=== PATIENT | male | born 1945 | race Caucasian/White ===

== ENCOUNTER → 2018-08-28 | Outpatient (CLI) | payer MEDICARE ==
[2018-08-28 15:16] LABS: LDL Cholesterol,Calculated 89.2 mg/dL (0.0-131.0); VLDL Calculation 20.8 mg/dL (5.00-40.00)
== END | disposition home or self-care (01) ==
LOC: LABWHC1 08:53
PROVIDERS: ATTEND Internal Medicine Cardiovascular Disease
DX: E78.2 Mixed hyperlipidemia (principal)
CPT/HCPCS: 36415; 80061; 84450; 84460

== ENCOUNTER 2018-10-09 11:01 | Day surgery (SDC) | payer MEDICARE ==
[2018-10-07 10:40] VITALS: BMI 22.8
[~2018-10-09 11:01] MED LIST: HYDROmorphone 0.5 MG/0.5 ML SYRINGE IVP PRN; LACTATED RINGERS 1,000 ML IV SCH; MIDAZOLAM 2 MG/2 ML VIAL IV PRN; ONDANSETRON 4 MG/2 ML VIAL IVP ONE; SCOPOLAMINE 1.5MG/72HR PATCH TRANSDERM ONE
[2018-10-09 12:25] VITALS: RESP 16; TEMP 97.6
[2018-10-09] MEDS ORDERED: LIDOCAINE 1% 20 ML VIAL (10MG/ML) FOR IV START INTRADERMA ONE (12:32)
[2018-10-09] MEDS ORDERED: LIDOCAINE 1% INJ 10MG/ML (20 ML MDV) ONE (14:07)
[2018-10-09] MEDS ORDERED: PROPOFOL 10 MG/ML 20 ML VIAL IV ONE (14:07)
--- NOTE | 2018-10-09 15:22 | P.PCN ---
Date of Procedure: 10/09/18 Description of Procedure: BRIEF HISTORY: Patient is a 73-year-old pleasant male scheduled for an elective colonoscopy as a part of evaluation of a positive cologaurd in the outpatient setting. Patient has a history of colon polyps in the past as well as her particular disease. He reports that his been approximately 5 years since his last colonoscopy. He denies any abdominal pain, constipation, diarrhea, blood in stool or melena. He denies any family history of colon cancer. PROCEDURE PERFORMED: Colonoscopy with polypectomy. PREOPERATIVE DIAGNOSIS: Positive cologaurd, high risk colon cancer surveillance, personal history of polyps. ESTIMATED BLOOD LOSS: Minimal. IV sedation per Anesthesia. PROCEDURE: After informed consent was obtained, the patient, was brought into the endoscopy unit. IV sedation was administered by Anesthesia under continuous monitoring. D igital rectal examination was normal. Initially the Olympus CF-190 flexible video colonoscope was then inserted in the rectum, gradually advanced into the cecum without any difficulty. Careful examination was performed as the scope was gradually being withdrawn. Ileocecal valve and the appendiceal orifice were visualized and appeared normal. A sessile 4 mm polyp on the ileocecal valve was noted and removed with cold forcep polypectomy. A thickened fold was noted in the transverse colon with multiple biopsies and complete removal with cold forcep. A sessile 3 mm sigmoid colon polyp was removed with cold forcep polypectomy. Three 2 mm rectal polyps were removed with cold forcep polypectomy. Diverticulosis was noted predominantly in the sigmoid colon. Prep was excellent. Mucosa of the cecum, ascending colon, transverse colon, descending colon, sigmoid colon, and rectum appeared normal, with internal hemorrhoids noted. Retroflexion was performed in the rectum and no lesions were seen. The patient tolerated the procedure well. IMPRESSION: 1. Cold forcep polypectomy of polyps in the sigmoid colon, rectum and on the IC valve. 2. Thickened transverse colon fold biopsied. 3. Moderate diverticulosis. 4. Mild internal hemorrhoids. RECOMMENDATIONS: Findings of this examination were discussed with the patient and his girlfriend. Okay to resume diet. Anticipate repeat colonoscopy in 5 years. Await pathology from biopsies.
[2018-10-09 15:44] VITALS: BP 133/72; PULSE 58
== END 2018-10-09 16:13 | disposition home or self-care (01) ==
LOC: ORWHC2ENDO 11:01
PROVIDERS: ATTEND Internal Medicine
DX: Z86.010 Personal history of colon polyps (principal); D12.3 Benign neoplasm of transverse colon; D12.5 Benign neoplasm of sigmoid colon; K57.90 Diverticulosis of intestine, part unspecified, without perforation or abscess without bleeding; K64.8 Other hemorrhoids; Z88.5 Allergy status to narcotic agent; Z79.899 Other long term (current) drug therapy; Z79.01 Long term (current) use of anticoagulants; I48.91 Unspecified atrial fibrillation; K21.9 Gastro-esophageal reflux disease without esophagitis; Z86.73 Personal history of transient ischemic attack (TIA), and cerebral infarction without residual deficits; E78.5 Hyperlipidemia, unspecified; I10 Essential (primary) hypertension; I25.2 Old myocardial infarction; J44.9 Chronic obstructive pulmonary disease, unspecified; F17.290 Nicotine dependence, other tobacco product, uncomplicated
CPT/HCPCS: 45380; J2001; J2704; 88305

== ENCOUNTER → 2020-08-17 | Outpatient (CLI) | payer MEDICARE ==
--- NOTE | 2020-08-17 18:31 | MR ---
EXAMINATION TYPE: MR shoulder RT wo con DATE OF EXAM: 08/17/2020 COMPARISON: Outside radiograph 08/11/2020 HISTORY: 75-year-old male M25.511, Pain in right shoulder TECHNIQUE: Multiplanar, multisequence imaging of the right shoulder is performed without contrast. FINDINGS: The long head biceps tendon becomes heterogeneous at the junction of the intracapsular and extracapsu lar portions, refer to sagittal T2 FS image 22. The extracapsular portion remains appropriate AC join t along the bicipital groove with moderate tenosynovial fluid. Heterogeneous signal of the subscapularis tendon with areas of partial-thickness tearing throughout. The majority of the tendon appears intact. Moderate degenerative joint space narrowing and marginal spurring and capsular hypertrophy at the acr omioclavicular joint. Anterior spurring contacts the underlying myotendinous junction of the supraspi natus. Heterogeneous signal both supraspinatus and infraspinatus tendons. The supraspinatus tendon demonstra malissa bursal sided fraying. Intrasubstance changes present throughout. There is an intrasubstance tear at the footprint of the far anterior supraspinatus tendon fibers. No high-grade partial or full-thickness tear is identified. No atrophy of the rotator cuff musculature. Mild glenohumeral joint effusion. Mild cartilage thinning along the glenoid humeral joint. There is some edematous change along the axillary recess and soft tissue replacement in the rotator c uff interval. Portions of the coracohumeral ligament appears thickened up to 5 mm. There is abnormal signal within the superior labrum extending to the upper third aspect of the filer finish ior labrum. Patchy red marrow is present and can be seen in the setting of anemia, smoking, and chronic disease. No Hill-Sachs deformity or os acromiale. No suspicious bone marrow replacement. IMPRESSION: 1. Diffuse rotator cuff tendinosis. Scattered areas of bursal sided fraying and intrasubstance change is present throughout. Additionally, areas of partial thickness tearing involves the subscapularis t endon though the majority remains intact. No high-grade partial or full-thickness rotator cuff tear. 2. Some soft tissue replacement in the rotator cuff interval, mild edematous thickening along the axi llary recess, and thickening of the coracohumeral ligament. These are nonspecific findings but the co nstellation may be seen with adhesive capsulitis. Clinically correlate. 3. Either focal tendinosis versus partial tear at the junction of the intracapsular and extracapsular portions of the long head biceps tendon. Associated tenosynovitis. 4. Findings suggest superior labral tear. 5. Mild glenohumeral joint OA and moderate AC joint OA.
== END | disposition home or self-care (01) ==
LOC: RADMRIMAIN 10:59
PROVIDERS: ATTEND Orthopaedic Surgery
DX: S46.811A Strain of other muscles, fascia and tendons at shoulder and upper arm level, right arm, initial encounter (principal); M75.21 Bicipital tendinitis, right shoulder; M19.011 Primary osteoarthritis, right shoulder

== ENCOUNTER → 2021-08-17 | Outpatient (CLI) | payer MEDICARE ==
[2021-08-17 23:05] LABS: African American GFR (CKD) 85.6 (60.0-200.0); Anion Gap 12.6 mmol/L (10.00-18.00); Blood Urea Nitrogen 11.9 mg/dL (9.0-27.0); Carbon Dioxide 23.4 mmol/L (20.0-27.5); Non-African American GFR(CKD) 73.8 (60.0-200.0); Potassium 4.7 mmol/L (3.5-5.5)
== END | disposition home or self-care (01) ==
LOC: LABWHC1 16:03
PROVIDERS: ATTEND Internal Medicine Cardiovascular Disease
DX: I10 Essential (primary) hypertension (principal); I20.0 Unstable angina; E78.2 Mixed hyperlipidemia
CPT/HCPCS: 36415; 80051; 82565; 84520

== ENCOUNTER 2021-08-21 06:19 | Day surgery (SDC) | payer MEDICARE ==
[2021-08-18 11:40] VITALS: BMI 23.6
[~2021-08-21 06:19] MED LIST changes: +ALPRAZolam 0.25 MG TAB PO PRN; +ALPRAZolam 0.5 MG TAB PO PRN; +ASPIRIN 325 MG TAB PO STA; +ATORVASTATIN 80 MG TAB PO STA; +HEPARIN SODIUM,PORCINE 10,000 UNIT in SODIUM CHLORIDE 0.9% 1,000 ML IRRIGATION PRN; +HEPARIN SODIUM,PORCINE 2,500 UNIT in SODIUM CHLORIDE 0.9% 250 ML IRRIGATION PRN; -HYDROmorphone 0.5 MG/0.5 ML SYRINGE IVP PRN; -LACTATED RINGERS 1,000 ML IV SCH; -MIDAZOLAM 2 MG/2 ML VIAL IV PRN; +NITROGLYCERIN SL TABS 0.4 MG TAB SUBLINGUAL PRN; -ONDANSETRON 4 MG/2 ML VIAL IVP ONE; -SCOPOLAMINE 1.5MG/72HR PATCH TRANSDERM ONE
[2021-08-21] MEDS ORDERED: SODIUM CHLORIDE 0.9% 1,000 ML in EMPTY BAG 1 BAG IV SCH (06:30)
[2021-08-21 06:47] VITALS: RESP 18; TEMP 97
[2021-08-21] MEDS ORDERED: HEPARIN SODIUM 1,000 UN/ML (10ML VL) ONE (07:05)
[2021-08-21] MEDS ORDERED: LIDOCAINE 1% INJ 10MG/ML (20 ML MDV) ONE (07:05)
[2021-08-21] MEDS ORDERED: fentaNYL (PF) 50 MCG/ML 2 ML AMP ONE (07:06)
[2021-08-21 07:26] LABS: Basophils # (A) 0.1 k/uL (0-0.2); Basophils % (A) 1 %; Eosinophils # (A) 0.2 k/uL (0-0.7); Eosinophils % (A) 3 %; HCT 50.1 % (39.0-53.0); HGB 16.8 gm/dL (13.0-17.5); Lymphocytes # (A) 2.1 k/uL (1.0-4.8); Lymphocytes % (A) 26 %; MCH 31.3 pg (25.0-35.0); MCHC 33.5 g/dL (31.0-37.0); MCV 93.5 fL (80.0-100.0); Mean Platelet Volume 7.3; Monocytes # (A) 0.5 k/uL (0-1.0); Monocytes % (A) 7 %; Neutrophils # (A) 5.1 k/uL (1.3-7.7); Neutrophils % (A) 63 %; Platelet Count 249 k/uL (150-450); RBC 5.36 m/uL (4.30-5.90); RDW 12.9 % (11.5-15.5); WBC 8.1 k/uL (3.8-10.6)
[2021-08-21] MEDS ORDERED: MIDAZOLAM 2 MG/2 ML VIAL IV ONE (07:36)
[2021-08-21] MEDS ORDERED: fentaNYL (PF) 50 MCG/ML 2 ML AMP IV ONE (07:36)
[2021-08-21] MEDS ORDERED: LIDOCAINE 1% INJ 10MG/ML (20 ML MDV) SQ ONE (07:37)
[2021-08-21] MEDS ORDERED: VERAPAMIL SYRINGE (5 MG/10 ML) INTRAARTER ONE (07:41)
[2021-08-21] MEDS ORDERED: HEPARIN SODIUM 1,000 UN/ML (10ML VL) IV ONE (07:44)
[2021-08-21] MEDS ORDERED: IOPAMIDOL-370 125ML BTL INJ ONE (07:51)
[2021-08-21 10:11] VITALS: PULSE 59
[2021-08-21 11:38] VITALS: BP 118/67
--- NOTE | 2021-08-21 11:43 | CC ---
CARDIAC CATHETERIZATION REPORT INDICATION: Unstable angina. PROCEDURE NOTE: After obtaining informed consent, left heart catheterization and coronary angiogram were performed via the right radial artery using standard Shara catheters. Patient tolerated the procedure well without any obvious immediate complications. Patient received moderate conscious sedation. Total sedation time was 16 minutes. Right radial artery access was obtained using a micropuncture needle. Catheter and wire were passed into the ascending aorta under fluoroscopic guidance. Catheters were exchanged in the ascending aorta. The patient received 5 mg of verapamil and 5000 units of heparin as per protocol to prevent vasospasm and as an anticoagulant FINDINGS: HEMODYNAMICS: Left ventricular end-diastolic pressure is 8 to 12 mm. There is no significant gradient across the aortic valve. LEFT VENTRICULOGRAM: Left ventriculogram was not performed. ANGIOGRAPHIC DATA: Left main coronary artery. Left main coronary artery is a normal-sized vessel and is free of stenosis. It divides into left anterior descending coronary artery and circumflex coronary artery. LAD and its branches are free of significant stenosis. Circumflex coronary artery, which is a dominant vessel, shows mild nonobstructive disease distally. Right coronary artery is a nondominant vessel and shows a moderate atherosclerotic plaque in the mid portion. CONCLUSION: Mild nonobstructive coronary artery disease involving right coronary artery and circumflex coronary artery. I believe the patient's chest discomfort is noncardiac in origin, and his management is going to be in the form of risk factor modification and optimal medical therapy. MMODL / IJN: [id number] /
== END 2021-08-21 12:00 | disposition home or self-care (01) ==
LOC: CATHCVL 06:19
PROVIDERS: ATTEND Internal Medicine Cardiovascular Disease
DX: I20.0 Unstable angina (principal)
CPT/HCPCS: 93458; 85025; J2250; J2001; J3010; J1644; Q9967

== ENCOUNTER → 2021-09-18 | Outpatient (CLI) | payer MEDICARE ==
--- NOTE | 2021-09-18 21:49 | CT ---
EXAMINATION TYPE: CT angio chest DATE OF EXAM: 09/18/2021 COMPARISON: No previous CT scan is available for comparison HISTORY: chest pain CT DLP: 239.2 mGy.cm. Automated Exposure Control for Dose Reduction was Utilized. TECHNIQUE AND CONTRAST: CTA scan of the thorax is performed with IV Contrast, patient injected with 72cc mL of Isovue 370, pu lmonary angiogram protocol. MIP Images are created on an independent workstation and reviewed. FINDINGS: No definite filling defect within the pulmonary trunk, main pulmonary arteries, lobar and segmental b ranches to suggest pulmonary embolism. Subsegmental branches are suboptimally assessed. The pulmonary trunk measures 2.7 cm. No gross cardiomegaly. Scattered arterial and coronary atherosclerotic calcif ications. No pericardial effusion. Bilateral lower lobe posterior dependent densities and peripheral pulmonary reticulations. Severe ray trilobular emphysematous changes mainly involving the upper lobes. 5 mm middle lobe pleural-based nod ule with more inferior mixed density 4mm nodule. Right lower lobe lateral pleural-based nodule measur ing 5 mm with a 4 mm right upper lobe anterior nodule. 5 mm pleural-based nodule is seen in the left lung base. Patent trachea and main bronchi. No pleural effusion. No pathologically enlarged lymph nodes in the c hest. No gross upper abdominal abnormality. No aggressive bone lesion. IMPRESSION: No major or central pulmonary embolism. Pulmonary emphysematous changes as described above. Scattered bilateral pulmonary nodules measuring up to 5 mm as described above. Recommend precautionar y follow-up CT scan in 3-6 months for reassessment. Other incidental findings as described above.
== END | disposition home or self-care (01) ==
LOC: RADCTMAIN 17:42
PROVIDERS: ATTEND Family Medicine
DX: J43.2 Centrilobular emphysema (principal); R91.8 Other nonspecific abnormal finding of lung field
CPT/HCPCS: 82565; 84520; 71275; 36415; Q9967

== ENCOUNTER → 2022-04-13 | Outpatient (CLI) | payer MEDICARE ==
--- NOTE | 2022-04-13 08:49 | CTL ---
EXAMINATION TYPE: CT Low Dose Lung DATE OF EXAM ORDERED: 04/13/2022 HISTORY: 77-year-old male Z87.891. Lung cancer screening, smoker with 35 pack-year history. CT DLP: 67.[address] CTDI: 1.80 mGy Automated exposure control for dose reduction was used. SCREENING VISIT: Baseline COMPARISON: Prior CT chest 09/18/2021. TECHNIQUE: Low dose computed tomography scan was performed through the chest with coronal and sagitta l reconstructions.. CT DIAGNOSTIC QUALITY: Satisfactory FINDINGS: Heart normal size without pericardial effusion. LAD and circumflex coronary calcifications are presen t. Scattered mild atherosclerotic calcifications within thoracic aorta. Mild ectasia ascending aorta 3.7 cm in upper descending thoracic aorta at 3.2 cm. Bovine configuration to the aortic arch. Mild aneur ysm lower descending thoracic aorta to 3.0 cm. No thoracic lymphadenopathy by CT size criteria. Mild biapical pleural-parenchymal scarring. Moderate centrilobular emphysema and mild diffuse bronchi al wall thickening. 3 mm nodularity peripheral right upper lobe, axial image 50 is unchanged. 4 mm subpleural pulmonary nodule along the superiormost aspect of the left major fissure, axial image 102 is unchanged. 4 mm lateral right lower lung pulmonary nodule, axial image 208 is unchanged. 5 mm subpleural pulmonary nodule right middle lobe, axial image 201 is unchanged. 4 mm lateral right lower lung pulmonary nodule along the major fissure, axial image 219 is unchanged. 3 mm subpleural pulmonary nodule basilar right middle lobe, axial image 239 is unchanged. 6 mm subpleural pulmonary nodule posterior right base, axial image 226 not clearly seen previously. 5 mm anterior right midlung pulmonary nodule, axial image 153 may be minimally increased from 4 mm on 09/18/2021, 7 months ago. Mild bibasilar bronchiolectasis and scattered strandy scarring. Subtle groundglass changes are presen t and could reflect additional areas of atelectasis. Correlate for possible interstitial pneumonitis that is in a slightly or DIP. Tiny hiatal hernia. Bones: Mild degenerative disc disease mid to lower thoracic spine. IMPRESSION: 1. Scattered bilateral pulmonary nodules are largely stable from 7 months ago. A 6 mm pulmonary nodul e at the posterior right base was not clearly seen previously. It should be reassessed at short inter sridhar follow-up in 6 months. A 5 mm right mid lung pulmonary nodule may also be minimally increased in size. This can also be reassessed. 2. COPD with moderate emphysema. Some scarring is present at the lung bases along with some groundgla ss change. Correlate for the possibility of an underlying interstitial pneumonitis such as NSIP or DI P. CT LUNG RAD AND CT CHEST RECOMMENDATION: Lung-Rad 3 Probably Benign: 6 month follow-up LDCT. S Modifier (other clinically significant findings): None
== END | disposition home or self-care (01) ==
LOC: RADCTMAIN 07:33
PROVIDERS: ATTEND Family Medicine
DX: Z12.2 Encounter for screening for malignant neoplasm of respiratory organs (principal); J43.9 Emphysema, unspecified; R91.8 Other nonspecific abnormal finding of lung field; Z87.891 Personal history of nicotine dependence
CPT/HCPCS: 71271

== ENCOUNTER → 2022-05-11 | Outpatient (CLI) | payer MEDICARE ==
--- NOTE | 2022-05-11 10:58 | FL ---
EXAMINATION TYPE: FL barium swallow DATE OF EXAM: 05/11/2022 10:36 AM COMPARISON: CT chest 04/13/2022. CLINICAL INDICATION:Male, 77 years old with history of K22.4 DYSKINESIA OF ESOPHAGUS; TECHNIQUE: The procedure was explained and patient history elicited. All patient questions were ans wered prior to start of procedure. Multiple spot fluoroscopic images of the esophagus were obtained a fter the oral ingestion of effervescent crystals and liquid barium as the contrast agent. A executive director of nursing ra diograph of the chest was obtained and reviewed. Fluoroscopic time: 18 seconds Fluoroscopic images: Radiographs taken: 184 FINDINGS: The executive director of nursing radiograph of the chest demonstrates no evidence of focal consolidation, pneumoth orax or pleural effusion. The cardiomediastinal silhouette is unremarkable. No acute osseous patholog y. The esophagus demonstrates normal primary and secondary peristalsis. The esophageal mucosa is smooth without evidence of focal stricture, ulceration, or abnormal outpouching. No gastroesophageal reflu x disease was identified. Tertiary contractions are present. Small hiatal hernia was noted while lyin g prone. IMPRESSION: 1. Esophageal dysmotility worse while prone. 2. Small sliding hiatal hernia.
== END | disposition home or self-care (01) ==
LOC: RADUSWWP 09:42
PROVIDERS: ATTEND Family Medicine
DX: K22.4 Dyskinesia of esophagus (principal); K44.9 Diaphragmatic hernia without obstruction or gangrene
CPT/HCPCS: 74220

== ENCOUNTER → 2022-10-15 | Outpatient (CLI) | payer MEDICARE ==
--- NOTE | 2022-10-15 13:13 | CTL ---
EXAMINATION TYPE: CT Low Dose Lung DATE OF EXAM: 10/15/2022 11:48 AM CLINICAL INDICATION:Male, 77 years old with history of Z87.891 PERSONAL HISTORY OF NICOTINE DEPENDENC E; CURRENT SMOKER 1PACK A DAY/50 YEARS , history of tobacco use. COMPARISON: 04/13/2022 TECHNIQUE: Multiple axial non-contrast scans were obtained from approximately the lung apices through the upper abdomen. Coronal and sagittal reformatted images were obtained. Low dose technique was uti lized. CT DLP: 70.5 mGycm, Automated exposure control for dose reduction was used. CT Contrast: Contrast used: None Oral contrast used: None FINDINGS: ======== Lack of intravenous contrast and low dose technique limits the evaluation of the vascular and soft ti ssue structures. LUNGS: No evidence of pulmonary fibrosis. No evidence of focal consolidation, pneumothorax or pleural effusion. Emphysema changes are seen throughout the lungs. Nodules: * RUL: Stable right upper lobe nodular density series 3 image 52. 4 mm pulmonary nodule image 15 9 stable. * RML: Stable 5 mm nodule series 3 image 202. Stable groundglass opacity measuring 5 mm image 21 3. * RLL: Stable posterior right lower lobe 6 mm pulmonary nodule image 226 * FERMIN: Left major fissure intrafissural lymph node image 107. * LLL: 4 mm image 273 and 6 mm image 303. AIRWAY: Patent and unremarkable. HEART: Size within normal limits. Coronary artery calcifications are present. MEDIASTINUM: No gross evidence of adenopathy. VASCULATURE: No aortic aneurysm. Atherosclerosis of the arterial vasculature. MUSCULOSKELETAL: No acute osseous abnormalities SOFT TISSUES/LYMPH NODES: Unremarkable. LOWER NECK: No significant findings. UPPER ABDOMEN: No significant findings. IMPRESSION: 1. Stable pulmonary nodules. 2. Moderate emphysema changes. CT LUNG RAD AND CT CHEST RECOMMENDATION: Lung-Rad 2 Benign Appearance or Behavior: Continue annual sc reening with LDCT in 12 months. S Modifier (other clinically significant findings): None Recommend smoking cessation (if current smoker), or continuation of smoking cessation (if prior smoke r). Annual screening for lung cancer with low-dose computed tomography is recommended in adults ages 55 to 77 years who have a 30 pack-year smoking history and currently smoke or have quit within the pa st 15 years. Screening should be discontinued once a person has not smoked for 15 years or develops a health problem that substantially limits life expectancy or the ability or willingness to have curat claudia lung surgery. Lung rads 2021 [email or web address]
== END | disposition home or self-care (01) ==
LOC: RADCTMAIN 10:43
PROVIDERS: ATTEND Family Medicine
DX: Z12.2 Encounter for screening for malignant neoplasm of respiratory organs (principal); J43.9 Emphysema, unspecified; R91.8 Other nonspecific abnormal finding of lung field; F17.210 Nicotine dependence, cigarettes, uncomplicated
CPT/HCPCS: 71271

== ENCOUNTER → 2022-11-07 | Outpatient (CLI) | payer MEDICARE ==
--- NOTE | 2022-11-07 08:09 | US ---
EXAMINATION TYPE: US abdomen comp/pelvis limited DATE OF EXAM: 11/07/2022 COMPARISON: 08/28/2014. CLINICAL INDICATION: Male, 77 years old with history of R10.30 LOWER ABDOMINAL PAIN, UNSPECIFIED; Low er abdomen pain. Chest pain. EXAM MEASUREMENTS: Liver Length: 16.8 cm Gallbladder Wall: 0.2 cm CBD: 0.4 cm Spleen: 11.6 cm Right Kidney: 11.2 x 4.8 x 3.8 cm Left Kidney: 10.1 x 5.1 x 5.6 cm Pancreas: wnl Liver: wnl Gallbladder: Possible gallbladder adenomyomatosis CBD: wnl Spleen: wnl Right Kidney: anechoic lesion = 1.8 x 1.6 x 1.5 cm Left Kidney: anechoic lesion = 1.1 x 1.0 x 0.9 cm Upper IVC: wnl Abd Aorta: No AAA visualized at time of scan Bladder: distended, anechoic Bilateral Jets Seen The prostate gland is enlarged measuring up to 4.6 x 4.5 x 4.2 cm. Median lobe hypertrophy changes. IMPRESSION: 1. No evidence for acute process. 2. Bilateral simple appearing renal cysts.
== END | disposition home or self-care (01) ==
LOC: RADUSWWP 06:45
PROVIDERS: ATTEND Internal Medicine Gastroenterology
DX: N28.1 Cyst of kidney, acquired (principal)
CPT/HCPCS: 76700; 76857

== ENCOUNTER 2022-11-09 10:34 | Day surgery (SDC) | payer MEDICARE ==
[2022-11-07 10:37] VITALS: BMI 22.8
[~2022-11-09 10:34] MED LIST changes: -ALPRAZolam 0.25 MG TAB PO PRN; -ALPRAZolam 0.5 MG TAB PO PRN; -ASPIRIN 325 MG TAB PO STA; -ATORVASTATIN 80 MG TAB PO STA; -HEPARIN SODIUM,PORCINE 10,000 UNIT in SODIUM CHLORIDE 0.9% 1,000 ML IRRIGATION PRN; -HEPARIN SODIUM,PORCINE 2,500 UNIT in SODIUM CHLORIDE 0.9% 250 ML IRRIGATION PRN; +LACTATED RINGERS 1,000 ML IV SCH; -NITROGLYCERIN SL TABS 0.4 MG TAB SUBLINGUAL PRN
[2022-11-09 12:54] VITALS: RESP 16; TEMP 97
[2022-11-09] MEDS ORDERED: LIDOCAINE 2% INJ 20 MG/ML (2 ML VIAL) ONE (13:49)
[2022-11-09] MEDS ORDERED: PROPOFOL 10 MG/ML 20 ML VIAL IV ONE (13:49)
--- NOTE | 2022-11-09 14:03 | P.PCN ---
Date of Procedure: 11/09/22 Procedure(s) Performed: BRIEF HISTORY: Patient is a 77-year-old, pleasant, white male scheduled for an upper endoscopy as a part of evaluation of atypical chest pain for the last several months duration. He does have long-standing history of GERD and takes Pepcid 20 mg twice daily with good relief.. PROCEDURE PERFORMED: Esophagogastroduodenoscopy with biopsy. PREOPERATIVE DIAGNOSIS: Atypical chest pain. IV sedation per anesthesia. PROCEDURE: After informed consent was obtained, the patient was brought into the endoscopy unit. IV sedation was administered by Anesthesia under continuous monitoring. Initially the Olympus GIF-140 video endoscope was inserted into the mouth. Esophagus intubated without any difficulty. It was gradually advanced into the stomach and duodenum and carefully examined. The bulb and the second part of the duodenum appeared normal. The scope at this time was withdrawn to the stomach, adequately insufflated with air, and upon careful examination, mucosa of the antrum, had mild gastritis and biopsies were done from this area. Mucosa of the body, cardia and the fundus appeared normal. The scope was then withdrawn into the esophagus. Small hiatal hernia noted. The GE junction was located at 39 cm from the incisors. The esophagus appeared normal. There were no erosions or ulcerations seen and biopsies were done from the distal esophagus and the patient tolerated the procedure well. IMPRESSION: 1. Small hiatal hernia but no evidence of esophagitis or Kaye's esophagus. 2. Mild antral gastric. RECOMMENDATIONS: The findings of this examination were discussed with the patient as well as his family. He was advised to follow with the biopsy results. In the meantime I recommended that he try Prilosec 20 mg twice daily half hour before breakfast and dinnertime and follow antireflux measures for 3 months..
[2022-11-09 14:23] VITALS: BP 121/69; PULSE 69
== END 2022-11-09 14:53 | disposition home or self-care (01) ==
LOC: ORWHC2ENDO 10:34
PROVIDERS: ATTEND Internal Medicine Gastroenterology
DX: K29.50 Unspecified chronic gastritis without bleeding (principal); K21.00 Gastro-esophageal reflux disease with esophagitis, without bleeding; K44.9 Diaphragmatic hernia without obstruction or gangrene; I10 Essential (primary) hypertension; E78.5 Hyperlipidemia, unspecified; J44.9 Chronic obstructive pulmonary disease, unspecified; F17.200 Nicotine dependence, unspecified, uncomplicated; Z86.73 Personal history of transient ischemic attack (TIA), and cerebral infarction without residual deficits; Z98.890 Other specified postprocedural states; Z88.5 Allergy status to narcotic agent; Z79.899 Other long term (current) drug therapy
CPT/HCPCS: 88305; 43239; J2704; J2001

== ENCOUNTER → 2023-09-20 | Outpatient (CLI) | payer MEDICARE ==
[2023-09-20 16:11] LABS: ALT 10 U/L (10-49); AST 12 U/L (14-35); LDL Cholesterol,Calculated 133.9 mg/dL (0.0-131.0)
== END | disposition home or self-care (01) ==
LOC: LABWHC1 07:57
PROVIDERS: ATTEND Internal Medicine Cardiovascular Disease
DX: E78.2 Mixed hyperlipidemia (principal)
CPT/HCPCS: 36415; 80061; 84450; 84460

== ENCOUNTER → 2023-10-25 | Outpatient (CLI) | payer MEDICARE ==
--- NOTE | 2023-10-26 09:37 | CTL ---
EXAMINATION TYPE: CT Low Dose Lung DATE OF EXAM ORDERED: 10/25/2023 HISTORY: . Lung cancer screening CT DLP: 71.[address] CTDI: 1.8 mGy Automated exposure control for dose reduction was used. SCREENING VISIT: Subsequent COMPARISON: 10/15/2022 TECHNIQUE: Low dose computed tomography scan was performed through the chest at 1 mm thick sections a nd reconstructed images in the coronal plane at [address] DIAGNOSTIC QUALITY: Satisfactory FINDINGS: LUNG NODULES: None. 1. There is a 0.6 cm nodule within the anterior right mid lung. Series 4 image 159. Previous measurem ent 0.4 cm. 2. There is a pleural-based 0.7 cm thickening. Series 4 image 204. This is slightly enlarged from 0.6 cm. There is new 0.9 cm linear area right middle lobe periphery. Series 4 image 210. This has change d configuration from prior exam. 4. There is a 0.6 cm peripheral posterior nodule. Series 4 image 215. This appears to have been prese nt previously. 5. There is a thickening within the major fissure in the posterior left apex measuring 0.4 cm. Series 4 image 103 LUNGS: COPD: Severity: Moderate Fibrosis: Severity: None Lymph nodes: None Other findings: None RIGHT PLEURAL SPACE: Effusion: None Calcification: None Thickening: None Pneumothorax: None LEFT PLEURAL SPACE: Effusion: None Calcification: None Thickening: None Pneumothorax: None HEART: Heart Size: Mild Coronary calcification: Mild Pericardial effusion: None OTHER FINDINGS: Upper abdomen: Normal Bony thorax: Normal Supraclavicular region: Normal Other: Ascending thoracic aorta at the level the main pulmonary artery measures 3.8 cm. The main pul monary artery at the bifurcation measures 2. cm. IMPRESSION: 1. Minimally Enlarging nodules in prior examination. Additional evaluation with PET/CT is recommended . 2. COPD FOLLOW UP CT CHEST RECOMMENDATION: PET/CT CT LUNG RAD: Lung-Rad 4A Suspicious
== END | disposition home or self-care (01) ==
LOC: RADCTMAIN 17:38
PROVIDERS: ATTEND Family Medicine
DX: Z12.2 Encounter for screening for malignant neoplasm of respiratory organs (principal); J44.9 Chronic obstructive pulmonary disease, unspecified; F17.210 Nicotine dependence, cigarettes, uncomplicated
CPT/HCPCS: 71271

== ENCOUNTER → 2023-12-05 | Outpatient (CLI) | payer MEDICARE ==
--- NOTE | 2023-12-08 10:30 | PE ---
EXAMINATION TYPE: PET CT fusion skull to thigh DATE OF EXAM: 12/05/2023 CLINICAL INDICATION:Male, 78 years old with history of R91.8 ABNORMAL FINDING LUNG FIELD; TECHNIQUE: Following the intravenous administration of 13.76 mCi of F-18 FDG, whole body images are performed from the skull base to the midthigh. Images are reviewed on the computer in the coronal, axial, and sagittal planes. Reconstructed rotating images are created on independent workstation and reviewed on the computer. A non-contrast CT is performed in conjunction with the PET scan. Glucose level 113 mg/dL CT DLP: 280 mGycm, Automated exposure control for dose reduction was used. COMPARISON: CT 10/25/2023, PET/CT None, FINDINGS: Mediastinal SUV mean is 1.9. Hepatic parenchyma SUV mean is 2.3. SKULL BASE AND NECK: * No suspicious radiotracer activity. * Periodontal disease in the right inferior mandible max SUV 6.9. CHEST, MEDIASTINUM, AND HILAR REGION: No suspicious radiotracer activity. Majority of the pulmonary nodules on prior PET/CT in the right middle lobe do not demonstrate increas ed metabolic activity and may be below the threshold for PET/CT. Largest measuring up to 5 mm. ABDOMEN AND PELVIS: No suspicious radiotracer activity. MUSCULOSKELETAL STRUCTURES: No suspicious radiotracer activity. OTHER CT: Bilaterally aphakia. This course of the carotid bifurcations and coronary arteries. Choleli thiasis. Hyperdense right renal cysts compatible with proteinaceous/hemorrhagic cyst measuring 74 Camryn nsfield units. Scattered colonic diverticula. Prostatomegaly. Moderate emphysema changes. Mild cardio megaly. Small hiatal hernia. IMPRESSION: No suspicious radiotracer activity. No suspicious uptake within the pulmonary nodules. Pulmonary nodu les may be below the size threshold for PET/CT. Continued surveillance with CT is recommended.
== END | disposition home or self-care (01) ==
LOC: RADPETMAIN 06:17
PROVIDERS: ATTEND Family Medicine
DX: R91.8 Other nonspecific abnormal finding of lung field (principal)
CPT/HCPCS: 78815; A9552

== ENCOUNTER → 2024-05-13 | Day surgery (SDC) | payer MEDICARE ==
[2024-05-12 12:35] VITALS: BMI 22.8
[~2024-05-13] MED LIST changes: -LACTATED RINGERS 1,000 ML IV SCH; +PROPOFOL 10 MG/ML 20 ML VIAL IV ONE
[2024-05-13 11:11] VITALS: TEMP 97.3
[2024-05-13] MEDS: LACTATED RINGERS 1,000 ML IV SCH (11:12)
[2024-05-13] MEDS: IV FLUID CONTINUATION 1,000 ML IV ONE (11:12)
--- NOTE | 2024-05-13 12:44 | P.PCN ---
Date of Procedure: 05/13/24 Procedure(s) Performed: BRIEF HISTORY: Patient is a 79-year-old pleasant white male scheduled for an elective colonoscopy as a part of evaluation of intermittent rectal bleeding. PROCEDURE PERFORMED: Colonoscopy. PREOPERATIVE DIAGNOSIS: Intermittent rectal bleeding. IV sedation per Anesthesia. PROCEDURE: After informed consent was obtained, the patient, was brought into the endoscopy unit. IV sedation was administered by Anesthesia under continuous monitoring. Digital rectal examination was normal. Initially the Olympus CF-160 flexible video colonoscope was then inserted in the rectum, gradually advanced into the cecum without any difficulty. Careful examination was performed as the scope was gradually being withdrawn. Ileocecal valve and the appendiceal orifice were visualized and appeared normal. Prep was excellent. Mucosa of the cecum, ascending colon, transverse colon, descending colon, sigmoid colon, and rectum appeared normal. Sigmoid diverticulosis. Retroflexion was performed in the rectum and grade 2 internal hemorrhoids were seen. The patient tolerated the procedure well. IMPRESSION: Normal-appearing colon from rectum to cecum with no evidence of colorectal neoplasia Grade 2 internal hemorrhoids Scattered sigmoid diverticula. RECOMMENDATIONS: Findings of this examination were discussed with the patient as well as his family. He was advised to be on a high-fiber diet and take fiber supplements on a regular basis and avoid straining and constipation..
[2024-05-13 13:10] VITALS: BP 126/80; PULSE 67; RESP 16
== END ==
LOC: ORWHC2ENDO 10:48
PROVIDERS: ATTEND Internal Medicine Gastroenterology
DX: K62.5 Hemorrhage of anus and rectum (principal); K64.1 Second degree hemorrhoids; K57.30 Diverticulosis of large intestine without perforation or abscess without bleeding; I10 Essential (primary) hypertension; E78.5 Hyperlipidemia, unspecified; K21.9 Gastro-esophageal reflux disease without esophagitis; I25.10 Atherosclerotic heart disease of native coronary artery without angina pectoris; J44.9 Chronic obstructive pulmonary disease, unspecified; M19.90 Unspecified osteoarthritis, unspecified site; F17.210 Nicotine dependence, cigarettes, uncomplicated; Z86.73 Personal history of transient ischemic attack (TIA), and cerebral infarction without residual deficits; Z79.899 Other long term (current) drug therapy
CPT/HCPCS: 45378; J2704

== ENCOUNTER → 2024-09-11 | Outpatient (CLI) | payer MEDICARE ==
--- NOTE | 2024-09-11 12:29 | CT ---
EXAMINATION TYPE: CT chest wo con DATE OF EXAM: 09/11/2024 COMPARISON: CT 12/05/2023 and low-dose CT 10/25/2023 CLINICAL INDICATION: Male, 79 years old with history of R91.1 SOLITARY PULMONARY NODULE; PHH, PULMONA RY NODULE AND COPD. TECHNIQUE: CT scan of the thorax is performed without IV contrast. CT DLP: 244.[address] CTDI: mGy Automated exposure control for dose reduction was used. FINDINGS: LUNGS: Scattered small sub-5 mm pleural nodules redemonstrated. No new nodules or masses seen. Compre ssive atelectasis right lung base. Emphysematous changes upper lobes. There is no pleural effusion or pneumothorax seen. The tracheobronchial tree is patent. MEDIASTINUM: Lack of IV contrast is noted to limit evaluation for mediastinal and especially hilar ad enopathy. There are no definitive greater than 1 cm hilar or mediastinal lymph nodes. No cardiomega ly or pericardial effusion is seen. HEART: Size within normal limits. No significant coronary artery calcifications. OTHER: No additional significant abnormality is seen. IMPRESSION: Scattered small sub-5 mm pleural nodules redemonstrated. No new nodules or masses seen. A nnual follow-up recommended. Follow-up recommendations for incidental pulmonary nodules are per [employer] or [employer]. [facility], , 09/11/2024 12:27 PM
== END | disposition home or self-care (01) ==
LOC: RADCTMAIN 11:55
PROVIDERS: ATTEND Internal Medicine Pulmonary Disease
DX: R91.1 Solitary pulmonary nodule (principal); K21.9 Gastro-esophageal reflux disease without esophagitis; J44.9 Chronic obstructive pulmonary disease, unspecified
CPT/HCPCS: 71250